=== PATIENT | female | born 1980 | race African-American/Black ===

== ENCOUNTER 2021-10-04 01:38 | Emergency (ER) | payer BC, MEDICAID ==
[2021-10-04] MEDS ORDERED: Ketorolac 30 MG/ML SDV IM ONE (02:08)
[2021-10-04] MEDS ORDERED: methylPREDNISolone Sodium Succinate 125 MG/2 ML SDV IM ONE (02:08)
[2021-10-04] MEDS ORDERED: Acetaminophen/oxyCODONE 325-5 MG Tab PO ONE (02:14)
== END 2021-10-04 02:35 | disposition home or self-care (01) ==
LOC: LL.ED 01:38
DX: M54.6 Pain in thoracic spine (principal); E66.9 Obesity, unspecified; Z68.30 Body mass index [BMI] 30.0-30.9, adult; Z88.8 Allergy status to other drugs, medicaments and biological substances; Z88.0 Allergy status to penicillin; Z86.16 Personal history of COVID-19
CPT/HCPCS: 96372; 99283; A9270-GY; J1885; J2930

== ENCOUNTER 2023-04-03 09:39 | Emergency (ER) | payer BC, MEDICAID, OTHER ==
[2023-04-03] MEDS ORDERED: Ketorolac 30 MG/ML SDV IM ONE (10:31)
[2023-04-03] MEDS ORDERED: Lidocaine 4% 1 each Patch TOP PRN (10:33)
== END 2023-04-03 11:00 | disposition home or self-care (01) ==
LOC: LL.ED 09:39
DX: M54.6 Pain in thoracic spine (principal); E66.9 Obesity, unspecified; Z68.43 Body mass index [BMI] 50.0-59.9, adult; Z86.16 Personal history of COVID-19; Z88.0 Allergy status to penicillin; Z88.8 Allergy status to other drugs, medicaments and biological substances; Z79.899 Other long term (current) drug therapy
CPT/HCPCS: 96372; 99283; 99284; A9270-GY; J1885

== ENCOUNTER 2024-01-05 00:56 | Emergency (ER) | payer SELFPAY ==
[2024-01-05] MEDS: Take Home: Ketorolac 10 MG Tab, 4 Tab Pack PO ONE (01:31)
[2024-01-05] MEDS: Take Home: Cyclobenzaprine 10 MG Tab, 4 Tab Pack PO ONE (01:31)
== END 2024-01-05 01:42 | disposition home or self-care (01) ==
LOC: LL.ED 00:56
DX: M54.50 Low back pain, unspecified (principal); E66.9 Obesity, unspecified; Z86.16 Personal history of COVID-19; Z79.899 Other long term (current) drug therapy; Z88.0 Allergy status to penicillin; Z88.8 Allergy status to other drugs, medicaments and biological substances
CPT/HCPCS: 99283; A9270-GY